=== PATIENT | male | born 1975 | race Caucasian/White ===

== ENCOUNTER 2022-10-31 13:59 | Inpatient (IN) | payer OTHER ==
[2022-10-31 17:00] VITALS: BMI 29.3
[2022-10-31] MEDS ORDERED: NICOTINE POLACRILEX 2 MG GUM BUC PRN (20:38)
[2022-10-31] MEDS ORDERED: BENZOCAINE/MENTHOL (CHLORASEPTIC ) LOZENGE MM PRN (20:38)
[2022-10-31] MEDS ORDERED: guaiFENesin 600 MG TABLET.ER (FP) PO PRN (20:38)
[2022-10-31] MEDS ORDERED: NALOXONE HCL (KLOXXADO) 8 MG SPRAY NS PRN (20:38)
[2022-10-31] MEDS ORDERED: IBUPROFEN 400 MG TABLET (FP) PO PRN (20:38)
[2022-10-31] MEDS ORDERED: LOPERAMIDE HCL 2 MG CAPSULE PO PRN (20:38)
[2022-10-31] MEDS ORDERED: P-EPHED 60MG/TRIPROLIDI 2.5MG TABLET PO PRN (20:38)
[2022-10-31] MEDS ORDERED: hydrOXYzine PAMOATE 25 MG CAPSULE (FP) PO PRN (20:38)
[2022-10-31] MEDS ORDERED: POLYETHYLENE GLYCOL (HEALTHYLAX) 3350 17 GM PACKET PO PRN (20:38)
[2022-10-31] MEDS ORDERED: ACETAMINOPHEN 325 MG TABLET (FP) PO PRN (20:38)
[2022-10-31] MEDS ORDERED: MAG HYDROX/AL HYDROX/SIMETH 30 ML UNIT-DOSE CUP PO PRN (20:38)
[2022-10-31] MEDS ORDERED: BENZONATATE 200 MG CAPSULE PO PRN (20:38)
[2022-10-31] MEDS ORDERED: NALOXONE HCL 0.4 MG/ML VIAL IM PRN (20:38)
[2022-10-31] MEDS ORDERED: MAGNESIUM HYDROX 2400MG/30ML ORAL SUSPENSION 30 ML CUP PO PRN (20:38)
[2022-10-31] MEDS ORDERED: IBUPROFEN 600 MG TABLET (FP) PO PRN (20:38)
[2022-10-31] MEDS ORDERED: ASPIRIN 325 MG TABLET PO SCH (20:45)
[2022-10-31] MEDS ORDERED: MELATONIN 5 MG TABLETS PO SCH (22:00)
[2022-10-31] MEDS: THIAMINE HCL 100 MG TABLET (FP) PO SCH (22:22)
[2022-11-01] MEDS: ONDANSETRON *ODT* 4 MG TABLET SL PRN ×2 (09:34→22:19)
[2022-11-01] MEDS ORDERED: methaDONE HCL 10 MG TABLET (FOR DETOX USE ONLY) PO ONE (09:45)
[2022-11-01] MEDS: PRENATAL VITAMINS W/ FOLIC ACID TABLET (FP) PO SCH (10:33)
[2022-11-01] MEDS: ASPIRIN COATED 81 MG TABLET.EC PO SCH (10:33)
[2022-11-01 12:26] LABS: POTASSIUM 3.6 mmol/L (3.5-5.1)
[2022-11-01 12:30] LABS: HEMATOCRIT 36.8 % (35.4-49); HEMOGLOBIN 12.3 GM/dL (11.7-16.9); MCH 29.4 pg (25.7-33.7); MCHC 33.5 g/dl (32.0-35.9); PLATELET COUNT 164 10^3/uL (134-434); RBC 4.19 M/mm3 (4.00-5.60); RDW 13.2 % (11.9-15.9); WHITE BLOOD COUNT 7.1 K/mm3 (4.0-10.0)
[2022-11-01 12:35] LABS: BLOOD UREA NITROGEN 20.4 mg/dL (7-18)
[2022-11-01 12:36] LABS: ALBUMIN 3.2 g/dl (3.4-5.0); CREATININE 1.4 mg/dL (0.55-1.3)
[2022-11-01 12:37] LABS: TOT PROT 6.1 g/dl (6.4-8.2)
[2022-11-01] MEDS: THIAMINE HCL 100 MG TABLET (FP) PO SCH (22:19)
[2022-11-01] MEDS: diphenhydrAMINE HCL 25 MG CAPSULE (FP) PO PRN (22:19)
[2022-11-02] MEDS: ONDANSETRON *ODT* 4 MG TABLET SL PRN ×2 (08:09→16:38)
[2022-11-02] MEDS: PRENATAL VITAMINS W/ FOLIC ACID TABLET (FP) PO SCH (10:11)
[2022-11-02] MEDS: ASPIRIN COATED 81 MG TABLET.EC PO SCH (10:12)
[2022-11-02] MEDS: BISMUTH SUBSALICYLATE 524 MG/30 ML PO PRN (10:13)
[2022-11-02] MEDS: DICYCLOMINE HCL 10 MG CAPSULE PO PRN (10:13)
[2022-11-02] MEDS: METHOCARBAMOL 500 MG TABLET PO PRN ×2 (14:43→22:09)
[2022-11-02] MEDS: cloNIDine HCL 0.1 MG TABLET PO PRN (17:54)
[2022-11-02] MEDS: THIAMINE HCL 100 MG TABLET (FP) PO SCH (22:09)
[2022-11-02] MEDS: diphenhydrAMINE HCL 25 MG CAPSULE (FP) PO PRN (22:09)
[2022-11-03] MEDS: ONDANSETRON *ODT* 4 MG TABLET SL PRN ×3 (00:02→18:18)
[2022-11-03] MEDS ORDERED: methaDONE HCL 10 MG TABLET (FOR DETOX USE ONLY) PO ONE (10:00)
[2022-11-03] MEDS: cloNIDine HCL 0.1 MG TABLET PO PRN (10:14)
[2022-11-03] MEDS: PRENATAL VITAMINS W/ FOLIC ACID TABLET (FP) PO SCH (10:14)
[2022-11-03] MEDS: METHOCARBAMOL 500 MG TABLET PO PRN ×2 (10:14→19:43)
[2022-11-03] MEDS: amLODIPine BESYLATE 10 MG TABLET (FP) PO SCH (10:15)
[2022-11-03] MEDS: ASPIRIN COATED 81 MG TABLET.EC PO SCH (10:15)
[2022-11-03] MEDS: LOSARTAN POTASSIUM 50 MG TABLET PO SCH (10:15)
[2022-11-03] MEDS: MELATONIN 5 MG TABLETS PO SCH (21:52)
[2022-11-03] MEDS: ATORVASTATIN CA 40 MG TABLET (FP) PO SCH (21:52)
[2022-11-03] MEDS: THIAMINE HCL 100 MG TABLET (FP) PO SCH (21:53)
[2022-11-03] MEDS: diphenhydrAMINE HCL 25 MG CAPSULE (FP) PO PRN (21:53)
[2022-11-04] MEDS: PRENATAL VITAMINS W/ FOLIC ACID TABLET (FP) PO SCH (10:07)
[2022-11-04] MEDS: LOSARTAN POTASSIUM 50 MG TABLET PO SCH (10:07)
[2022-11-04] MEDS: amLODIPine BESYLATE 10 MG TABLET (FP) PO SCH (10:08)
[2022-11-04] MEDS: ASPIRIN COATED 81 MG TABLET.EC PO SCH (10:08)
[2022-11-04] MEDS: METHOCARBAMOL 500 MG TABLET PO PRN ×2 (10:09→17:34)
[2022-11-04] MEDS: ONDANSETRON *ODT* 4 MG TABLET SL PRN (13:55)
[2022-11-04] MEDS: DICYCLOMINE HCL 10 MG CAPSULE PO PRN (17:34)
[2022-11-04] MEDS: THIAMINE HCL 100 MG TABLET (FP) PO SCH (22:13)
[2022-11-04] MEDS: MELATONIN 5 MG TABLETS PO SCH (22:13)
[2022-11-04] MEDS: diphenhydrAMINE HCL 25 MG CAPSULE (FP) PO PRN (22:14)
[2022-11-04] MEDS: ATORVASTATIN CA 40 MG TABLET (FP) PO SCH (22:14)
[2022-11-05] MEDS: METHOCARBAMOL 500 MG TABLET PO PRN ×2 (07:55→16:39)
[2022-11-05] MEDS: ONDANSETRON *ODT* 4 MG TABLET SL PRN ×2 (09:19→20:30)
[2022-11-05] MEDS ORDERED: methaDONE HCL 10 MG TABLET (FOR DETOX USE ONLY) PO ONE (10:00)
[2022-11-05] MEDS: amLODIPine BESYLATE 10 MG TABLET (FP) PO SCH (10:09)
[2022-11-05] MEDS: LOSARTAN POTASSIUM 50 MG TABLET PO SCH (10:09)
[2022-11-05] MEDS: ASPIRIN COATED 81 MG TABLET.EC PO SCH (10:09)
[2022-11-05] MEDS: PRENATAL VITAMINS W/ FOLIC ACID TABLET (FP) PO SCH (10:09)
[2022-11-05] MEDS: BISMUTH SUBSALICYLATE 524 MG/30 ML PO PRN (18:58)
[2022-11-05 20:51] VITALS: RESP 17
[2022-11-05] MEDS: ATORVASTATIN CA 40 MG TABLET (FP) PO SCH (22:04)
[2022-11-05] MEDS: THIAMINE HCL 100 MG TABLET (FP) PO SCH (22:04)
[2022-11-05] MEDS: MELATONIN 5 MG TABLETS PO SCH (22:05)
[2022-11-05] MEDS: diphenhydrAMINE HCL 25 MG CAPSULE (FP) PO PRN (22:40)
[2022-11-06] MEDS: METHOCARBAMOL 500 MG TABLET PO PRN (05:37)
[2022-11-06 09:00] VITALS: BP 142/83; PULSE 79; TEMP 98.2
== END 2022-11-06 09:17 | disposition home or self-care (01) | DRG 897 ==
LOC: YASAS 13:59 → Y3N 21:38
PROVIDERS: ADMIT Allergy & Immunology; ATTEND Surgery
PROC: HZ2ZZZZ Detoxification Services for Substance Abuse Treatment (ICD-10-PCS; principal; 2022-10-31)
DX: F11.23 Opioid dependence with withdrawal (principal); F13.20 Sedative, hypnotic or anxiolytic dependence, uncomplicated; F17.210 Nicotine dependence, cigarettes, uncomplicated; F19.24 Other psychoactive substance dependence with psychoactive substance-induced mood disorder; E78.00 Pure hypercholesterolemia, unspecified; I25.10 Atherosclerotic heart disease of native coronary artery without angina pectoris; I12.9 Hypertensive chronic kidney disease with stage 1 through stage 4 chronic kidney disease, or unspecified chronic kidney disease; N18.30 Chronic kidney disease, stage 3 unspecified; I25.2 Old myocardial infarction; Z95.5 Presence of coronary angioplasty implant and graft; M54.50 Low back pain, unspecified; G89.29 Other chronic pain; Z62.810 Personal history of physical and sexual abuse in childhood; Z96.0 Presence of urogenital implants; Z86.59 Personal history of other mental and behavioral disorders; Z93.3 Colostomy status
CPT/HCPCS: 36415; 80053; 85027; 86780; 87635; 87811; Q0162